=== PATIENT | female | born 1970 | race Two or more races ===

== ENCOUNTER → 2024-07-26 | Outpatient (CLI) | payer MEDICAID, SELFPAY ==
--- NOTE | 2024-07-26 09:30 | XR_ITS ---
Examination: Breast ultrasound, unilateral, right complete Date and time of exam: July 26, 2024 0926 hours INDICATIONS: Right breast pain beginning August 2023 Technique: Real-time salcedo scale ultrasonographic imaging performed right breast including all 4 quadrants as well as nipple retroareolar and axillary region. Findings: No cystic or solid mass IMPRESSION: BI-RADS Category 1: Negative studies
--- NOTE | 2024-07-26 10:00 | XR_ITS ---
Examination: Diagnostic digital mammography, unilateral, right Computer aided detection 3-D breast Tomosynthesis, unilateral Date and time of exam: July 26, 2024 2136 hours INDICATIONS: Right breast lump noticed beginning 2022 Technique: Nonmagnified MLO, CC views of the right breast have been obtained, reconstructed from 3-D Tomosynthesis images. R2 computer aided detection program utilized for evaluation of suspicious masses and/or abnormal calcifications. 3-D Tomosynthesis images obtained. Findings: The breast is heterogeneously dense, which may obscure small masses No suspicious mass is confirmed Impression: BI-RADS category 2: Benign findings Recommend yearly follow-up mammography Repeat the right breast sonogram in 6 months if palpable lump remains
== END | disposition home or self-care (01) ==
PROVIDERS: PCP Physician Assistant; Referring Provider Physician Assistant; Visit Provider Physician Assistant
DX: R92.321 Mammographic fibroglandular density, right breast (principal)
CPT/HCPCS: 76641; 77061; 77065; G0279